=== PATIENT | female | born 1985 ===

== ENCOUNTER 2020-08-04 15:43 | Outpatient (REF) | payer OTHER, MEDICAID, SELFPAY | END 2020-08-04 15:44 | disposition home or self-care (01) | LOC: HO.LAB 15:43 | PROVIDERS: Visit Provider Internal Medicine | DX: Z20.822 Contact with and (suspected) exposure to COVID-19 (principal) | CPT/HCPCS: 36415; C9803; U0003; U0005 ==

== ENCOUNTER 2022-06-10 14:00 | Outpatient (RCR) | payer OTHER, SELFPAY | END 2022-07-29 14:42 | disposition home or self-care (01) | LOC: HO.PTCHIC 14:00 | PROVIDERS: PCP Family Medicine; Visit Provider Urology Female Pelvic Medicine and Reconstructive Surgery | DX: N30.10 Interstitial cystitis (chronic) without hematuria (principal) | CPT/HCPCS: 97110; 97112; 97140; 97162; 97535 ==

== ENCOUNTER 2022-12-12 14:44 | Outpatient (REF) | payer MEDICAID, SELFPAY ==
[2022-12-13 05:06] LABS: Syphilis Screen Nonreactive (Nonreactive)
[2022-12-13 05:38] LABS: ~HepC Num1 0.06 S/CO (0.00-0.79); ~Hepatitis C Antibody Nonreactive (Nonreactive)
[2022-12-13 05:45] LABS: HBsAGNum1 0.32 S/CO (0.00-0.99); HIV AB/AG Nonreactive (Nonreactive); HIV Num 1 0.05 S/CO (0.00-0.99); Hepatitis B Surface Antigen Negative (Negative)
== END 2022-12-12 14:45 | disposition home or self-care (01) ==
LOC: HO.HMGCLDS 14:44
PROVIDERS: Visit Provider Urology Female Pelvic Medicine and Reconstructive Surgery
DX: Z11.3 Encounter for screening for infections with a predominantly sexual mode of transmission (principal); Z11.4 Encounter for screening for human immunodeficiency virus [HIV]
CPT/HCPCS: 36415; 86780; 86803; 87340; 87389

== ENCOUNTER 2022-12-13 14:07 | Outpatient (REF) | payer OTHER, SELFPAY ==
[2022-12-13 16:09] LABS: MANUAL DIFF FLAG NO
[2022-12-13 16:28] LABS: Basophils Percent Auto 0.6 % (0-2); Eosinophils Absolute Auto 0.1 X10*3/uL (0.0-0.4); Eosinophils Percent Auto 2.1 % (0-4); Hematocrit 39.6 % (37.0-47.0); Hemoglobin 12.6 g/dl (12.0-16.0); Imm Gran Abs Auto 0.02 X10*3/uL (0.00-0.03); Imm Gran Pct Auto 0.3 % (0.0-0.4); Lymphocytes Absolute Auto 1.5 X10*3/uL (1.2-4.9); Lymphocytes Percent Auto 24.1 % (20-40); Mean Corpuscular HGB Conc 31.8 g/dl (31.0-35.0); Mean Corpuscular Hemoglobin 29.4 pg (27.0-33.0); Mean Corpuscular Volume 92.5 fL (80.0-98.0); Mean Platelet Volume 10.6 fL (9.4-12.3); Monocytes Absolute Auto 0.4 X10*3/uL (0.1-1.2); Monocytes Percent Auto 6.9 % (2-11); Neutrophils Absolute Auto 4.1 x10*3/uL (2.0-8.3); Platelet Count 299 X10*3/uL (160-400); Red Blood Count 4.28 X10*6/uL (4.20-5.50); Red Cell Distribution Width 13.9 % (11.0-16.0); White Blood Count 6.3 X10*3/uL (4.8-10.8)
[2022-12-13 16:50] LABS: Alanine Aminotransferase 14 U/L (0-31); Alkaline Phosphatase 54 U/L (39-117); Anion Gap 14 (12-20); Aspartate Amino Transferase 18 U/L (5-31); Bilirubin Direct 0.2 mg/dL (0.0-0.5); Bilirubin Total 0.5 mg/dL (0.0-1.0); Blood Urea Nitrogen 11 mg/dL (9-16); Calcium 9.2 mg/dL (8.4-10.2); Carbon Dioxide 23 mmol/L (22-29); Chloride 107 mmol/L (96-108); Cholesterol 189 mg/dL; Estimated Glomerular Filt Rate > 60; Glucose Random 84 mg/dL (60-115); HDL Cholesterol 63 mg/dL; LDL Cholesterol Calculated 108 mg/dl; Sodium 140 mmol/L (135-145); Total Protein 7.5 g/dL (6.5-8.0); Triglycerides 90 mg/dL
[2022-12-13 16:55] LABS: Estimated Average Glucose 88 mg/dL; Hemoglobin A1c % 4.7 %
[2022-12-13 17:08] LABS: Thyroid Stimulating Hormone 1.86 uIU/mL (0.32-4.0)
== END 2022-12-13 14:08 | disposition home or self-care (01) ==
LOC: HO.HMGCLDS 14:07
PROVIDERS: PCP Internal Medicine; Visit Provider Internal Medicine
DX: Z00.00 Encounter for general adult medical examination without abnormal findings (principal); E55.9 Vitamin D deficiency, unspecified
CPT/HCPCS: 36415; 80053; 80061; 82248; 82306; 83036; 84443; 85025

== ENCOUNTER 2023-06-07 14:33 | Outpatient (REF) | payer OTHER, SELFPAY ==
[2023-06-07 15:14] LABS: MANUAL DIFF FLAG NO
[2023-06-07 15:21] LABS: Basophils Percent Auto 0.6 % (0-2); Eosinophils Absolute Auto 0.2 X10*3/uL (0.0-0.4); Eosinophils Percent Auto 3.2 % (0-4); Hematocrit 39.1 % (37.0-47.0); Hemoglobin 12.8 g/dl (12.0-16.0); Imm Gran Abs Auto 0.01 X10*3/uL (0.00-0.03); Imm Gran Pct Auto 0.2 % (0.0-0.4); Lymphocytes Absolute Auto 1.8 X10*3/uL (1.2-4.9); Lymphocytes Percent Auto 28.8 % (20-40); Mean Corpuscular HGB Conc 32.7 g/dl (31.0-35.0); Mean Corpuscular Volume 91.6 fL (80.0-98.0); Mean Platelet Volume 10.7 fL (9.4-12.3); Monocytes Absolute Auto 0.4 X10*3/uL (0.1-1.2); Monocytes Percent Auto 6.6 % (2-11); Neutrophils Absolute Auto 3.8 x10*3/uL (2.0-8.3); Neutrophils Percent Auto 60.6 % (45-73); Platelet Count 302 X10*3/uL (160-400); Red Blood Count 4.27 X10*6/uL (4.20-5.50); Red Cell Distribution Width 13.5 % (11.0-16.0); White Blood Count 6.2 X10*3/uL (4.8-10.8)
[2023-06-07 15:23] LABS: Amphetamine Screen Urine Not Detected (Not Detect); Barbiturates, Urine Not Detected (Not Detect); Benzodiazepines Screen Urine Not Detected (Not Detect); Cannabinoid Screen Urine Not Detected (Not Detect); Cocaine Screen Urine Not Detected (Not Detect); Fentanyl, urine Not Detected (Not Detect); Opiate Screen Urine Not Detected (Not Detect); Phencyclidine Screen Urine Not Detected (Not Detect)
[2023-06-07 15:26] LABS: Estimated Average Glucose 100 mg/dL; Hemoglobin A1c % 5.1 % (<6.0)
[2023-06-07 15:36] LABS: Alanine Aminotransferase 14 U/L (0-31); Albumin Level 3.8 g/dL (3.5-5.0); Alkaline Phosphatase 45 U/L (39-117); Aspartate Amino Transferase 16 U/L (5-31); Bilirubin Direct < 0.2 mg/dL (0.0-0.5); Bilirubin Total 0.2 mg/dL (0.0-1.0); Cholesterol 204 mg/dL (<200); HDL Cholesterol 63 mg/dL (>40); LDL Cholesterol Calculated 123 mg/dL (<100); Total Protein 7.8 g/dL (6.5-8.0); Triglycerides 90 mg/dL (<150)
[2023-06-07 15:50] LABS: Thyroid Stimulating Hormone 1.82 uIU/mL (0.32-4.0); Vitamin D 25-OH Total 27.6 ng/mL (>30)
== END 2023-06-07 14:34 | disposition home or self-care (01) ==
LOC: HO.HMGCLDS 14:33
PROVIDERS: PCP Internal Medicine; Visit Provider Internal Medicine
DX: E04.1 Nontoxic single thyroid nodule (principal); E55.9 Vitamin D deficiency, unspecified; Z79.899 Other long term (current) drug therapy
CPT/HCPCS: 80061; 80076; 80307; 82306; 83036; 84443; 85025

== ENCOUNTER 2023-10-29 08:11 | Outpatient (REF) | payer OTHER, SELFPAY ==
[2023-10-29 11:25] LABS: MANUAL DIFF FLAG NO
[2023-10-29 11:29] LABS: Basophils Absolute Auto 0.1 X10*3/uL (0.0-0.2); Basophils Percent Auto 1.1 % (0-2); Eosinophils Absolute Auto 0.2 X10*3/uL (0.0-0.4); Eosinophils Percent Auto 3.7 % (0-4); Hematocrit 38.4 % (37.0-47.0); Hemoglobin 12.4 g/dl (12.0-16.0); Imm Gran Abs Auto 0.01 X10*3/uL (0.00-0.03); Imm Gran Pct Auto 0.2 % (0.0-0.4); Lymphocytes Absolute Auto 1.7 X10*3/uL (1.2-4.9); Mean Corpuscular HGB Conc 32.3 g/dl (31.0-35.0); Mean Corpuscular Hemoglobin 29.4 pg (27.0-33.0); Mean Platelet Volume 11.2 fL (9.4-12.3); Monocytes Absolute Auto 0.4 X10*3/uL (0.1-1.2); Monocytes Percent Auto 7.7 % (2-11); Neutrophils Percent Auto 55.3 % (45-73); Platelet Count 291 X10*3/uL (160-400); Red Blood Count 4.22 X10*6/uL (4.20-5.50); Red Cell Distribution Width 13.7 % (11.0-16.0); White Blood Count 5.3 X10*3/uL (4.8-10.8)
[2023-10-29 11:37] LABS: Estimated Average Glucose 103 mg/dL; Hemoglobin A1c % 5.2 % (<6.0)
[2023-10-29 11:50] LABS: Alanine Aminotransferase 16 U/L (0-31); Albumin Level 3.8 g/dL (3.5-5.0); Alkaline Phosphatase 42 U/L (39-117); Anion Gap 11 (12-20); Aspartate Amino Transferase 21 U/L (5-31); Bilirubin Total 0.2 mg/dL (0.0-1.0); Blood Urea Nitrogen 10 mg/dL (9-16); Calcium 8.9 mg/dL (8.4-10.2); Carbon Dioxide 21 mmol/L (22-29); Chloride 109 mmol/L (96-108); Cholesterol 208 mg/dL (<200); Estimated Glomerular Filt Rate > 60; Glucose Random 102 mg/dL (60-115); HDL Cholesterol 54 mg/dL (>40); LDL Cholesterol Calculated 128 mg/dL (<100); Potassium 3.9 mmol/L (3.3-5.1); Sodium 137 mmol/L (135-145); Total Protein 7.2 g/dL (6.5-8.0); Triglycerides 131 mg/dL (<150)
[2023-10-29 12:08] LABS: Thyroid Stimulating Hormone 2.09 uIU/mL (0.32-4.0)
== END 2023-10-29 08:12 | disposition home or self-care (01) ==
LOC: HO.HMGCLDS 08:11
PROVIDERS: PCP Internal Medicine; Visit Provider Internal Medicine
DX: Z00.00 Encounter for general adult medical examination without abnormal findings (principal); Z13.1 Encounter for screening for diabetes mellitus; Z13.89 Encounter for screening for other disorder
CPT/HCPCS: 36415; 80053; 80061; 83036; 84443; 85025

== ENCOUNTER 2023-11-19 07:37 | Inpatient (IN) | payer OTHER, SELFPAY ==
[2023-11-19] VITALS (9 sets, daily range): BP systolic 105–120; BP diastolic 50–80; PULSE 58–98; RESP 12–70; TEMP 36.4–36.8; O2SAT 97–99; BMI 36.2; BMI 36.4
--- NOTE | ~2023-11-19 | MR_ITS ---
EXAMINATION: MR LUMBAR SPINE WITHOUT CONTRAST CLINICAL INFORMATION: Sagittal anesthesia. History of L5-S1 herniation. COMPARISON: No relevant prior imaging. TECHNIQUE: MRI of the lumbar spine was obtained using routine sequences without contrast. FINDINGS: Alignment is normal. Vertebral body heights are preserved. No acute bone marrow signal changes. There is loss of intervertebral disc height and T2 signal intensity at L5-S1. The tip of the conus medullaris is located at L1. No mass effect on the conus. Visualized distal cord signal intensity is normal. At L1-L2, L2-L3, L3-L4, and L4-L5 the annular contours are normal. No canal or neuroforaminal compromise at these 4 levels. At L5-S1 there is a broad left central protrusion superimposed upon a bulging disc causing indentation of the thecal sac and subtle abutment on the left traversing S1 nerve root. No canal stenosis and no foraminal nerve root compression. Limited visualization of the retroperitoneal anatomy reveals no abnormal finding. Psoas and paraspinal muscle groups are symmetric. MR/MR lumbar spine wo con IMPRESSION: There is a broad left central protrusion superimposed upon a bulging disc at L5-S1 causing subtle abutment on the left traversing S1 nerve root. Otherwise unremarkable examination. No canal stenosis and no foraminal nerve root compression.
--- NOTE | 2023-11-19 08:28 | ED.GENADULT ---
HPI - General Adult General Chief complaint: Back Pain/Injury Stated complaint: BACK PAIN S/P STRETCHING T-1 PER EMS Time Seen by Provider: 11/19/23 08:27 Source: patient, EMS and RN notes reviewed Mode of arrival: EMS Limitations: no limitations History of Present Illness ED Provider: albaro HPI narrative: Patient is a 38-year-old female with history of disc herniation of L5/S1 in 2018 which resolved with PT, did not require surgery, presenting to the ED with complaint of lower back pain for the past 2 weeks with acute worsening yesterday. States that her initial herniation was a result of an injury at work. Feels recent pain was due to yoga/stretching. States pain is primarily midline but occasionally radiates down left leg and reports numbness down right leg to calf. Also reports saddle anesthesia and has not urinated since last night. Denies bowel or bladder incontinence. Took naproxen without relief. Denies fevers, history of IVDU, cancer. MD complaint: back pain Onset (ago): day(s) Location: back Radiation: distal Severity scale (1-10): >10 Quality: burning Pain Consistency: constant Relieving factors: none Exacerbating factors: movement Treatments prior to arrival: NSAID Related Data Allergies Allergy/AdvReac Type Severity Reaction Status Date / Time acetaminophen [From Vicodin] Allergy Severe dyspnea Verified 11/19/23 08:06 codeine Allergy Severe Chest Pain Verified 11/19/23 08:06 hydrocodone [From Vicodin] Allergy Severe dyspnea Verified 11/19/23 08:06 Review of Systems Review of Systems: As per HPI. Yes all other systems are reviewed and are negative Constitutional: Constitutional: Reports as per HPI [facility] Social History Social History Advance Directives: No Advance Directives Information Provided: Yes Do you have a plan to hurt others: No Plan Physical Exam ED Vital Signs: Vital Signs - 24 hr 11/19/23 08:02 11/19/23 08:51 11/19/23 11:03 Temperature 98.2 F Pulse Rate 70 Respiratory Rate 18 70 H 12 Blood Pressure 116/61 Pulse Oximetry 98 Oxygen Delivery Method Room Air 11/19/23 11:33 11/19/23 13:46 11/19/23 13:47 Temperature 98.2 F Pulse Rate 69 68 70 Respiratory Rate 12 19 18 Blood Pressure 106/50 L 110/61 120/58 L Pulse Oximetry 97 98 Oxygen Delivery Method 11/19/23 15:25 Temperature 98.2 F Pulse Rate 98 Respiratory Rate 16 Blood Pressure 117/61 Pulse Oximetry 98 Oxygen Delivery Method Room Air BMI result Body Mass Index 36.2 Vital signs have been reviewed and appear to be correct. Blood pressure normal. Heart rate normal. Respiratory rate normal. Temperature normal. Oxygen saturation normal. Const General: cooperative and healthy appearing; No comfortable (tearful during assessment) Orientation/consciousness: oriented to person, oriented to place, oriented to time and patient oriented x3 Limitations: no limitations [facility] Head: Yes normocephalic and Yes atraumatic Ears: external ears normal General nose exam: Normal external nose present Face and sinus: Yes face symmetric Mouth: oropharynx normal and moist mucous membranes Throat: Yes uvula midline Eyes Pupils: Equal, round and reactive pupils present Neck Neck: Yes normal visual inspection, Yes no meningeal signs and Yes supple Resp Effort & Inspection: normal respiratory effort and able to speak in complete sentences Auscultation: clear to auscultation bilaterally Cardio Rate: regular rate Rhythm: regular rhythm Heart sounds: S1 normal heart sound present and S2 normal heart sound present GI Palpation (GI): Soft to palpation and nontender Auscultation: normoactive bowel sounds General: Yes no CVA tenderness Back/Spine/Pelvis Back: no CVA tenderness Skin General skin exam: elasticity normal and turgor normal Neuro Other: exam limited due to pain, decreased sensation to right leg on anterior and lateral aspects General: oriented to person, oriented to place, oriented to time, patient oriented x3, tone normal, moves all extremities, no meningeal signs, no focal motor deficits and CN's II-XI intact bilaterally Cranial nerves: Yes Equal, round and reactive pupils present Cognition (Neuro): normal cognition Extrem General: Yes full ROM, Yes no pedal edema and Yes no calf tenderness Psych Mental Status: mental status grossly normal Affect: normal affect Thought process: Normal thought process present Medications Administered Discontinued Medications Generic Name Dose Route Start Last Admin Trade Name Freq PRN Reason Stop Dose Admin Diazepam 5 mg 11/19/23 10:50 11/19/23 11:05 Diazepam 10 Mg/2 Ml Cartridge IVPUSH 11/19/23 10:51 5 mg STAT STA Administration Hydromorphone HCl 1 mg 11/19/23 10:38 11/19/23 11:03 Hydromorphone Hcl 1 Mg/Ml Syringe IVPUSH 11/19/23 10:39 1 mg ONCE ONE Administration Protocol Hydromorphone HCl 0.5 mg 11/19/23 13:37 11/19/23 13:43 Hydromorphone Hcl 0.5 Mg/0.5 Ml Syringe IVPUSH 11/19/23 13:38 0.5 mg ONCE ONE Administration Protocol Methylprednisolone Sodium Succinate 60 mg 11/19/23 08:39 11/19/23 08:52 Methylprednisolone Sod Succ 125 Mg/2 Ml Vial IVPUSH 11/19/23 08:40 60 mg ONCE ONE Administration Morphine Sulfate 4 mg 11/19/23 08:39 11/19/23 08:51 Morphine Sulfate 4 Mg/Ml Cartridge IVPUSH 11/19/23 08:40 4 mg ONCE ONE Administration Protocol Morphine Sulfate 4 mg 11/19/23 09:35 11/19/23 09:45 Morphine Sulfate 4 Mg/Ml Cartridge IVPUSH 11/19/23 09:36 4 mg ONCE ONE Administration Protocol Medical Decision Making Medical Decision Making [facility] Narrative: Patient is a 38-year-old female with history of disc herniation of L5/S1 in 2018 which resolved with PT, did not require surgery, presenting to the ED with complaint of lower back pain for the past 2 weeks with acute worsening yesterday. States that her initial herniation was a result of an injury at work. On exam patient is awake, A+Ox3, VS WNL, afebrile, normal neurological exam without focal deficits, physical exam findings as above. Given reported symptoms and physical exam findings, initial differential includes cauda equina, cord compression, disc herniation, lumbar strain, lumbar radiculopathy. Less likely SEA. Patient signed out to NAZARIO Castillo pending results of MRI. Differential Diagnosis Differential Diagnoses: The differential diagnosis associated with the presentation includes As per [facility] Lab Data [facility] Lab Attestation statement: I reviewed the patient's lab results. As per [facility] Labs: Lab Results 11/19/23 Range/Units 10:34 Urine Color Yellow Urine Appearance Clear Urine pH 6.5 (5.0-9.0) Ur Specific [place] 1.015 (1.005-1.025) Urine Protein Negative (Neg-Trace) mg/dL Urine Glucose (UA) Negative (Negative) mg/dL Urine Ketones Negative (Negative) mg/dL Urine Blood Negative (Negative) Urine Nitrite Negative (Negative) Ur Leukocyte Esterase Trace H (Negative) Urine RBC 0-2 (0-2) /HPF Urine WBC 0-5 (0-5) /HPF Ur Squamous Epith Cells 0-2 (0-2) /HPF Urine Bacteria None Seen (None Seen) Hyaline Casts 0-2 (0-2) /LPF External Record Review External record reviewed: Inpatient record, Office record and Outpatient record Prescription Management I considered prescription management with: Pain Medication Critical Care Time Critical Care Time Critical Care Time: Yes Total Critical Care Time: 49 Attestation: I have personally provided critical care time exclusive of time spent on separately billable procedures. Time includes review of lab data, radiology results, discussion with consultants, and monitoring for potential decompensation. Intervention performed as documented. Discharge Plan Discharge Clinical Impression: Back pain Patient Disposition: Still a Patient Print Language: Slovak
[2023-11-19] MEDS: Morphine Sulfate 4 MG/ML CARTRIDGE IVPUSH ×2 (08:51→09:45)
[2023-11-19] MEDS: methylPREDNISolone Sod Succ 125 MG/2 ML VIAL 60 MG IVPUSH (08:52)
[2023-11-19 10:43] LABS: Appearance Urine Clear; Color Urine Yellow; Glucose Urine UA Negative (Negative); Leukocyte Esterase Urine Trace (Negative); Nitrite Urine Negative (Negative); PH 6.5 (5.0-9.0); Specific Gravity - Urine 1.015 (1.005-1.025); UMIC TRIGGER UACC YES; Urine Blood Negative (Negative); Urine Ketones Negative (Negative); Urine Protein Negative (Neg-Trace)
--- NOTE | 2023-11-19 10:45 | PC.NURSE ---
patient was able to void on the bedpan 500 clear yellow urine.
[2023-11-19 10:48] LABS: Bacteria Urine None Seen (None Seen); Hyaline Casts Urine 0-2 /LPF (0-2); RBC Urine 0-2 /HPF (0-2); Squamous Epithelial Cell Urine 0-2 /HPF (0-2); WBC Urine 0-5 /HPF (0-5)
[2023-11-19] MEDS: HYDROmorphone HCl 1 MG/ML SYRINGE IVPUSH (11:03)
[2023-11-19] MEDS: diazePAM 10 MG/2 ML CARTRIDGE 5 MG IVPUSH (11:05)
--- NOTE | 2023-11-19 11:42 | PC.NURSE ---
Oxygen started for low oxygen saturation of 92-93 percent; RR is between 9-13 per minute with no respiratory distress noted.
[2023-11-19] MEDS: HYDROmorphone HCl 0.5 MG/0.5 ML SYRINGE IVPUSH ×2 (13:43→22:05)
--- NOTE | 2023-11-19 17:13 | PM.IMHP ---
History of Present Illness Date of Service: 11/19/23 Chief Complaint: Lower back pain 38-year-old female patient with past medical history significant for L5/S1 disc herniation in 2018 which resolved with physical therapy did not require surgery, also with history of ADHD, psoriasis, presented to [facility] due to worsening lower back pain according to patient 2 weeks ago she developed back pain due to stretching exercises she is saw her chiropractor Yordan underwent manipulation and was resting with good relief in symptoms she was instructed by chiropractic not resume exercises for 2 weeks yesterday morning she started stretching and developed back discomfort Marita localized to both buttocks with radiation to both legs left greater than right she was unable to stand or sit moved around, all day she managed pain with using Naprosyn last night developed severe pain and this morning it worsened she was unable to walk due to pain, therefore came to emergency room she describes her pain as sharp , shooting feeling in the buttock with radiation to both legs up to feet and toes, associated with numbness in the foot, she denies bowel bladder incontinence, likely due to pain patient was unable to urinate, she denies associated fever chills, no history of IV drug use, MRI Lumbar spine showed broad left central protrusion superimposed upon a bulging disc at L5-S1 causing subtle abutment on the left traversing S1 nerve root otherwise unremarkable examination, no canal stenosis, no foraminal nerve root compression was noted. Patient treated in the emergency room with multiple rounds of morphine, IV Dilaudid, IV Solu Medrol but due to persistent intractable S1 radiculopathy pain she is being admitted to [facility]. Review of Systems Review of Systems: General no headache, no dizziness no fever chills. CVS no chest pain, no palpitation. Respiratory no cough, no sob Gastrointestinal no nausea, no vomiting, no abdominal pain Skin no rash no urgency, no frequency All other system reviewed and are negative PMFSH Cognitive capacity: History of psoriasis ADHD Pertinent family history: Patient is adopted not aware of biological parents medical history. Social History Household Members: None Housing: Apartment Do you presently have visiting nurse or other home services: No Alcohol intake: current Alcohol intake frequency: a few times a week Patient Tobacco Use Status: Never used Tobacco Smoked in Last 30 Days: No Use of substances other than those prescribed or required for medical reasons: No Substance Use Type: Marijuana Substance Use Frequency: Occasionally Last Used Substance: Days (ago) Currently Displaying Signs/Symptoms of Drug Intoxication Withdrawal: No Any prior treatment program specific to substance use: No Have you been hit, kicked, punched, or otherwise hurt by someone within the past year? If so, by whom?: No Do you feel safe in your current relationship?: No Current Relationship Is there a partner from a previous relationship who is making you feel unsafe now?: No Are you made to feel afraid or neglected: No Advance Directives: No Advance Directives Information Provided: Yes Do you have a plan to hurt others: No Plan Recently lost weight without trying: Unsure How much weight loss: Unsure Eating poorly because of decreased appetite: No Nutrition screen score: 4 Nutrition Risks: No Nutritional Risk Patient : No : No Poor oral hygiene: No Meds Allergies Allergy/AdvReac Type Severity Reaction Status Date / Time acetaminophen [From Vicodin] Allergy Severe dyspnea Verified 11/19/23 08:06 codeine Allergy Severe Chest Pain Verified 11/19/23 08:06 hydrocodone [From Vicodin] Allergy Severe dyspnea Verified 11/19/23 08:06 Active Medications: Current Medications Calcium Carbonate (Calcium Carbonate 750 Mg Tab.Chew) 750 mg PO Q4H PRN PRN Reason: Heartburn Dexamethasone Sodium Phosphate (Dexamethasone Sod Phosphate 4 Mg/Ml Vial) 4 mg IVPUSH Q8H [facility] Famotidine (Famotidine 20 Mg Tablet) 20 mg PO BID [facility] Gabapentin (Gabapentin 100 Mg Capsule) 100 mg PO TID [facility]AR[facility] Hydromorphone HCl (Hydromorphone Hcl 0.5 Mg/0.5 Ml Syringe) 0.5 mg IVPUSH Q3H PRN; Protocol PRN Reason: Pain, Severe (Pain Scale 7-10) Ketorolac Tromethamine (Ketorolac Tromethamine 30 Mg/Ml Vial) 30 mg IVPUSH Q6H [facility] Magnesium Hydroxide (Milk Of Magnesia 30 Ml Oral.Susp) 30 ml PO DAILY PRN PRN Reason: Constipation Melatonin (Melatonin 3 Mg Tablet) 6 mg PO BEDTIME PRN PRN Reason: Insomnia Methylphenidate HCl (Methylphenidate Hcl 10 Mg Tablet) 10 mg PO TID ROSARIO Ondansetron HCl (Ondansetron Hcl 4 Mg/2 Ml Vial) 4 mg IVPUSH Q8H PRN PRN Reason: Nausea and Vomiting Sodium Chloride (0.9 % Sodium Chloride Flush 3 Ml Syringe) [facility] ?Medication ?Instructions ?Recorded ?Confirmed ?Last Taken ?Type apremilast 30 mg tablet (Otezla) 30 mg PO BID 11/19/23 11/19/23 11/18/23 History fluocinonide 0.05 % topical 1 appl topical BID 11/19/23 11/19/23 11/18/23 History solution methylphenidate HCl 10 mg tablet 10 mg PO TID 11/19/23 11/19/23 11/18/23 History naproxen 500 mg tablet 500 mg PO BID PRN pain 11/19/23 11/19/23 Unknown History norgestimate 0.18 mg/0.215 mg/0.25 1 tab PO DAILY 11/19/23 11/19/23 11/18/23 History mg-ethinyl estradiol 25 mcg tablet (Kjq-Av-Cphbol) Physical Exam Vital Signs and Narrative: Vital Signs: Last Vital Signs Temp 98.2 F 11/19/23 15:25 Pulse 98 11/19/23 15:25 Resp 16 11/19/23 15:25 BP 117/61 11/19/23 15:25 Pulse Ox 98 11/19/23 15:25 O2 Del Method Room Air 11/19/23 15:25 BMI result Body Mass Index 36.2 Const: Other: General awake alert x3 in acute distress due to pain Anicteric sclera Neck supple, no JVD. CVS regular rate rhythm, Respiratory lungs clear to auscultation, no respiratory distress, no wheeze, no rhonchi. Gastrointestinal abdomen soft, non tender, bowel sounds audible, no guarding , no rigidity. Extremities no edema. Neuro speech clear, decreased sensation left leg, left foot, patient able to bend knees/flex foot, no loss of strength limited examination due to pain Psych appropriate affect Results Labs Labs: Laboratory Results - last 24 hr 11/19/23 10:34 Urine Color Yellow Urine Appearance Clear Urine pH 6.5 Ur Specific [place] 1.015 Urine Protein Negative Urine Glucose (UA) Negative Urine Ketones Negative Urine Blood Negative Urine Nitrite Negative Ur Leukocyte Esterase Trace H Urine RBC 0-2 Urine WBC 0-5 Ur Squamous Epith Cells 0-2 Urine Bacteria None Seen Hyaline Casts 0-2 Imaging Radiologist's Impressions: Impressions Lumbar Spine MRI 11/19/23 14:32 IMPRESSION: There is a broad left central protrusion superimposed upon a bulging disc at L5-S1 causing subtle abutment on the left traversing S1 nerve root. Otherwise unremarkable examination. No canal stenosis and no foraminal nerve root compression. Assessment and Plan (1) Bulging lumbar disc: Status: Acute (2) Intractable back pain: Status: Acute (3) Lumbosacral radiculopathy at S1: Status: Acute Plan 38-year-old female patient being admitted to [facility] due to intractable lower back pain with radiation to both legs left greater than right likely due to left central protrusion superimposed upon a bulge disc at L5-S1 causing subtle abutment on the left traversing S1 nerve root. Acute intractable lower back pain due to disc bulge at L5-S1/left central protrusion with S1 nerve impingement; Admit to medical floor treat with Neurontin 100 mg t.i.d./Toradol 30 mg q.6 hours/IV steroids/IV Dilaudid Pepcid for GI prophylaxis Bedrest History of ADHD resume home medication History of psoriasis no acute flare Class 2 obesity recommend low-calorie diet and weight loss DVT prophylaxis low risk Full code. In my clinical judgment patient will require 2 night inpatient hospitalization for intractable lower back pain due to S1 radiculopathy requiring intravenous analgesics, patient unable to ambulate Quality Stroke Does the patient have a stroke diagnosis?: No VTE Prior VTE?: No VTE Risk Level:: Medical - low VTE Device Contraindication: Treatment Not Indicated VTE Drug Contraindication: Treatment Not Indicated
[2023-11-19] MEDS: Ketorolac Tromethamine 30 MG/ML VIAL IVPUSH (17:27)
[2023-11-19] MEDS: dexAMETHasone sod phosphate 4 MG/ML VIAL IVPUSH (17:27)
--- NOTE | 2023-11-19 17:39 | PHA.MEDREC ---
Pharmacy Consult ? Medication Reconciliation Pharmacy has completed the medication reconciliation. Spoke to patient to confirm med list.
[2023-11-19] MEDS: Famotidine 20 MG TABLET PO (20:46)
[2023-11-19] MEDS: Gabapentin 100 MG CAPSULE PO (20:46)
[2023-11-19] MEDS: 0.9 % Sodium Chloride Flush 3 ML SYRINGE IVFLUSH (20:46)
[2023-11-19] MEDS: Melatonin 3 MG TABLET 6 MG PO (22:05)
[2023-11-20] MEDS: Ketorolac Tromethamine 30 MG/ML VIAL IVPUSH ×4 (01:02→17:13)
[2023-11-20] MEDS: dexAMETHasone sod phosphate 4 MG/ML VIAL IVPUSH ×3 (01:02→17:14)
[2023-11-20] MEDS: HYDROmorphone HCl 0.5 MG/0.5 ML SYRINGE IVPUSH ×4 (02:37→20:49)
--- NOTE | 2023-11-20 03:38 | PC.NURSE ---
Pt AOx3, able to make her needs known. Pt voided on bedpan but d/t pain it caused her, purewick was placed after discussion and education w/pt. She continues to c/o 01/19 lower back pain. Repositioning attempts are trial and error d/t her back pain. She is unable to sit up or walk, she has an order for bedrest at this time. Pt educated and voiced understanding in regards to safety, bed alarm was declined. Call quiñones within reach.
[2023-11-20 07:17] VITALS: BP 106/57; PULSE 74; RESP 16; TEMP 36.4; O2SAT 98
[2023-11-20] MEDS: Methylphenidate HCl 10 MG TABLET PO ×3 (08:24→17:14)
[2023-11-20] MEDS: 0.9 % Sodium Chloride Flush 3 ML SYRINGE IVFLUSH ×2 (08:24→15:48)
[2023-11-20] MEDS: Famotidine 20 MG TABLET PO ×2 (08:24→20:33)
[2023-11-20] MEDS: Gabapentin 100 MG CAPSULE PO ×3 (08:24→20:33)
--- NOTE | 2023-11-20 11:53 | HO.PM.IMPN ---
Subjective Subjective Date of Service: 11/20/23 Interval History: Being followed for S1 radiculopathy with severe intractable pain Feel pain is slightly better tried sitting up but noted worsening pain, no bowel bladder incontinence, no weakness, left leg numbness is improving in lower leg and foot.. Review of Systems All other system reviewed and are negative. Physical Exam Vital Signs: Vital Signs: Last Vital Signs Temp 97.5 F 11/20/23 07:17 Pulse 74 11/20/23 07:17 Resp 16 11/20/23 07:17 BP 106/57 L 11/20/23 07:17 Pulse Ox 98 11/20/23 07:17 O2 Del Method Room Air 11/20/23 07:17 BMI result Body Mass Index 36.4 Const: Other: General awake alert x3 in acute distress due to pain Anicteric sclera Neck supple, no JVD. CVS regular rate rhythm, Respiratory lungs clear to auscultation, no respiratory distress, no wheeze, no rhonchi. Gastrointestinal abdomen soft, non tender, bowel sounds audible, no guarding , no rigidity. Extremities no edema. Neuro speech clear, LS numbness left leg, left foot, no loss of strength limited examination due to pain Psych appropriate affect Objective Data Active Medications Calcium Carbonate (Calcium Carbonate 750 Mg Tab.Chew) 750 mg PO Q4H PRN PRN Reason: Heartburn Dexamethasone Sodium Phosphate (Dexamethasone Sod Phosphate 4 Mg/Ml Vial) 4 mg IVPUSH Q8H [facility] Last Admin: 11/20/23 08:24 Dose: 4 mg Documented By: PINA Famotidine (Famotidine 20 Mg Tablet) 20 mg PO BID [facility] Last Admin: 11/20/23 08:24 Dose: 20 mg Documented By: PINA Gabapentin (Gabapentin 100 Mg Capsule) 100 mg PO TID [facility] Last Admin: 11/20/23 08:24 Dose: 100 mg Documented By: PINA Hydromorphone HCl (Hydromorphone Hcl 0.5 Mg/0.5 Ml Syringe) 0.5 mg IVPUSH Q3H PRN; Protocol PRN Reason: Pain, Severe (Pain Scale 7-10) Last Admin: 11/20/23 10:26 Dose: 0.5 mg Documented By: PINA Ketorolac Tromethamine (Ketorolac Tromethamine 30 Mg/Ml Vial) 30 mg IVPUSH Q6H [facility] Stop: 11/24/23 17:59 Last Admin: 11/20/23 05:14 Dose: 30 mg Documented By: YURI Magnesium Hydroxide (Milk Of Magnesia 30 Ml Oral.Susp) 30 ml PO DAILY PRN PRN Reason: Constipation Melatonin (Melatonin 3 Mg Tablet) 6 mg PO BEDTIME PRN PRN Reason: Insomnia Last Admin: 11/19/23 22:05 Dose: 6 mg Documented By: YURI Methylphenidate HCl (Methylphenidate Hcl 10 Mg Tablet) 10 mg PO TIDWM [facility] Last Admin: 11/20/23 08:24 Dose: 10 mg Documented By: PINA Non-Formulary Medication (Apremilast [Otezla]) 30 mg PO BID [facility] Ondansetron HCl (Ondansetron Hcl 4 Mg/2 Ml Vial) 4 mg IVPUSH Q8H PRN PRN Reason: Nausea and Vomiting Sodium Chloride (0.9 % Sodium Chloride Flush 3 Ml Syringe) 3 ml IVFLUSH QSHIFT [facility] Last Admin: 11/20/23 08:24 Dose: 3 ml Documented By: PINA Assessment and Plan (1) Lumbosacral radiculopathy at S1: Status: Acute (2) Intractable back pain: Status: Acute Plan 38-year-old female patient being admitted to [facility] due to intractable lower back pain with radiation to both legs left greater than right likely due to left central protrusion superimposed upon a bulge disc at L5-S1 causing subtle abutment on the left traversing S1 nerve root. Acute intractable lower back pain due to disc bulge at L5-S1/left central protrusion with S1 nerve impingement; Pain improving with current treatment Continue Neurontin 100 mg t.i.d./Toradol 30 mg q.6 hours/IV steroids/wean IV Dilaudid Pepcid for GI prophylaxis Recommend to continue Bedrest/recommend to lie on back hold PT History of ADHD continue Ritalin History of psoriasis no acute flare Class 2 obesity recommend low-calorie diet and weight loss DVT prophylaxis low risk Full code. In my clinical judgment patient will require continued inpatient hospitalization for intractable lower back pain due to S1 radiculopathy requiring intravenous analgesics, patient unable to ambulate. Quality Stroke Does the patient have a stroke diagnosis?: No VTE Prior VTE?: No VTE Risk Level:: Medical - low VTE Device Contraindication: Treatment Not Indicated VTE Drug Contraindication: Treatment Not Indicated
--- NOTE | 2023-11-20 13:08 | MHC.CM.PN ---
PT REPORTS SHE LIVES ALONE AND IS INDEPENDENT AT BASELINE PT HAS NO SERVICES, WORKS AND DRIVES PT DENIES USE OF DME PT DECLINES TO COMPLETE A HCP PCP: MINA JUAN DCP: HOME NO SERVICES VIA PRIVATE TRANSPORT
[2023-11-20 15:26] VITALS: BP 133/63; PULSE 71; RESP 18; TEMP 36.5; O2SAT 98
[2023-11-20 20:40] VITALS: BP 128/66; PULSE 71; RESP 18; TEMP 36.7; O2SAT 94
[2023-11-21] VITALS: BP 116/57; PULSE 57; RESP 16; TEMP 36.4; O2SAT 96
[2023-11-21] MEDS: Melatonin 3 MG TABLET 6 MG PO (00:16)
[2023-11-21] MEDS: Milk of Magnesia 30 ML ORAL.SUSP PO (00:17)
[2023-11-21] MEDS: 0.9 % Sodium Chloride Flush 3 ML SYRINGE IVFLUSH ×4 (00:19→21:36)
[2023-11-21] MEDS: Ketorolac Tromethamine 30 MG/ML VIAL IVPUSH ×4 (00:20→17:45)
[2023-11-21] MEDS: dexAMETHasone sod phosphate 4 MG/ML VIAL IVPUSH ×2 (00:23→08:57)
[2023-11-21 07:35] VITALS: BP 116/62; PULSE 56; RESP 16; TEMP 36.1; O2SAT 97
[2023-11-21] MEDS: Famotidine 20 MG TABLET PO ×2 (08:57→20:00)
[2023-11-21] MEDS: Methylphenidate HCl 10 MG TABLET PO ×3 (08:57→17:45)
[2023-11-21] MEDS: HYDROmorphone HCl 0.5 MG/0.5 ML SYRINGE IVPUSH ×3 (08:57→21:34)
[2023-11-21] MEDS: Gabapentin 100 MG CAPSULE PO ×3 (08:57→20:00)
[2023-11-21 11:35] VITALS: BP 116/62; PULSE 56; O2SAT 97
--- NOTE | 2023-11-21 12:15 | MHC.CM.PN ---
EMR REVIEWED AND PER MD ROUNDS , PT MAY DC AFTER P.T. EVAL. P.T. REC HOME WITH FAMILY SUPPORT. CM WILL CONTINUE TO FOLLOW FOR ANY CHANGES TO DC PLAN/NEEDS.
--- NOTE | 2023-11-21 12:46 | P.PNIM_ITS ---
Subjective Subjective Date of Service: 11/21/23 Interval History: Being followed for S1 radiculopathy Feeling better, lower back pain has improved, complaining of back pain, buttocks and hamstring, lower extremity numbness resolved, able to sit, ambulated 100 ft without walker with supervision and guarded gait pattern with physical therapy, tolerating diet no nausea ,no abdominal pain or diarrhea Review of Systems All other system are reviewed and are negative. Physical Exam Vital Signs: Vital Signs: Last Vital Signs Temp 96.9 F 11/21/23 07:35 Pulse 56 11/21/23 11:35 Resp 16 11/21/23 07:35 BP 116/62 11/21/23 11:35 Pulse Ox 97 11/21/23 11:35 O2 Del Method Room Air 11/21/23 07:35 BMI result Body Mass Index 36.4 Const: Other: General awake alert x3 in acute distress due to pain Anicteric sclera Neck supple, no JVD. CVS regular rate rhythm, Respiratory lungs clear to auscultation, no respiratory distress, no wheeze, no rhonchi. Gastrointestinal abdomen soft, non tender, bowel sounds audible, no guarding , no rigidity. Extremities no edema. Neuro speech clear, both lower extremity, no numbness, no loss of strength Psych appropriate affect Objective Data Active Medications Calcium Carbonate (Calcium Carbonate 750 Mg Tab.Chew) 750 mg PO Q4H PRN PRN Reason: Heartburn Dexamethasone Sodium Phosphate (Dexamethasone Sod Phosphate 4 Mg/Ml Vial) 4 mg IVPUSH Q8H [facility] Last Admin: 11/21/23 08:57 Dose: 4 mg Documented By: PINA Famotidine (Famotidine 20 Mg Tablet) 20 mg PO BID [facility] Last Admin: 11/21/23 08:57 Dose: 20 mg Documented By: PINA Gabapentin (Gabapentin 100 Mg Capsule) 100 mg PO TID [facility] Last Admin: 11/21/23 08:57 Dose: 100 mg Documented By: PINA Hydromorphone HCl (Hydromorphone Hcl 0.5 Mg/0.5 Ml Syringe) 0.5 mg IVPUSH Q3H PRN; Protocol PRN Reason: Pain, Severe (Pain Scale 7-10) Last Admin: 11/21/23 08:57 Dose: 0.5 mg Documented By: PINA Ketorolac Tromethamine (Ketorolac Tromethamine 30 Mg/Ml Vial) 30 mg IVPUSH Q6H [facility] Stop: 11/24/23 17:59 Last Admin: 11/21/23 12:13 Dose: 30 mg Documented By: PINA Magnesium Hydroxide (Milk Of Magnesia 30 Ml Oral.Susp) 30 ml PO DAILY PRN PRN Reason: Constipation Last Admin: 11/21/23 00:17 Dose: 30 ml Documented By: CINDA Melatonin (Melatonin 3 Mg Tablet) 6 mg PO BEDTIME PRN PRN Reason: Insomnia Last Admin: 11/21/23 00:16 Dose: 6 mg Documented By: CINDA Methylphenidate HCl (Methylphenidate Hcl 10 Mg Tablet) 10 mg PO TIDWM [facility] Last Admin: 11/21/23 12:15 Dose: 10 mg Documented By: PINA Non-Formulary Medication (Apremilast [Otezla]) 30 mg PO BID [facility] Ondansetron HCl (Ondansetron Hcl 4 Mg/2 Ml Vial) 4 mg IVPUSH Q8H PRN PRN Reason: Nausea and Vomiting Sodium Chloride (0.9 % Sodium Chloride Flush 3 Ml Syringe) 3 ml IVFLUSH QSHIFT [facility] Last Admin: 11/21/23 08:59 Dose: 3 ml Documented By: PINA Assessment and Plan (1) Lumbosacral radiculopathy at S1: Status: Acute (2) Intractable back pain: Status: Acute Plan 38-year-old female patient being admitted to [facility] due to intractable lower back pain with radiation to both legs left greater than right likely due to left central protrusion superimposed upon a bulge disc at L5-S1 causing subtle abutment on the left traversing S1 nerve root. Acute intractable lower back pain due to disc bulge at L5-S1/left central protrusion with S1 nerve impingement; Pain improving with current treatment Continue Neurontin 100 mg t.i.d./Toradol 30 mg q.6 hours/change IV dexamethasone q8h to by mouth twice daily,/wean IV Dilaudid , allergic to codeine/hydrocodone Will discharge on Neurontin/Naprosyn/msir Seen by Physical therapy they recommend home with family Pepcid for GI prophylaxis Recommend to ambulate short distances few times a day/apply heat Possible home with family at a.m. History of ADHD continue Ritalin History of psoriasis no acute flare Class 2 obesity recommend low-calorie diet and weight loss DVT prophylaxis low risk Full code. In my clinical judgment patient will require continued inpatient hospitalization for intractable lower back pain due to S1 radiculopathy requiring intravenous analgesics, patient unable to ambulate. Quality Stroke Does the patient have a stroke diagnosis?: No VTE Prior VTE?: No VTE Risk Level:: Medical - low VTE Device Contraindication: Treatment Not Indicated VTE Drug Contraindication: Treatment Not Indicated
[2023-11-21 15:45] VITALS: BP 137/66; PULSE 56; RESP 16; TEMP 36.4; O2SAT 98
[2023-11-21] MEDS: dexAMETHasone 4 MG TABLET PO (17:45)
[2023-11-21 19:37] VITALS: BP 121/58; PULSE 83; RESP 16; TEMP 36.7; O2SAT 94
[2023-11-21 23:47] VITALS: BP 118/58; PULSE 52; RESP 16; TEMP 36.2; O2SAT 93
[2023-11-22] MEDS: Ketorolac Tromethamine 30 MG/ML VIAL IVPUSH ×5 (00:01→23:10)
[2023-11-22] MEDS: Milk of Magnesia 30 ML ORAL.SUSP PO (00:01)
[2023-11-22] MEDS: Melatonin 3 MG TABLET 6 MG PO ×2 (00:29→23:14)
[2023-11-22 07:43] VITALS: BP 124/62; PULSE 50; RESP 16; TEMP 36.2; O2SAT 99
[2023-11-22] MEDS: Gabapentin 100 MG CAPSULE PO ×3 (09:24→19:52)
[2023-11-22] MEDS: dexAMETHasone 4 MG TABLET PO ×2 (09:24→16:30)
[2023-11-22] MEDS: Famotidine 20 MG TABLET PO ×2 (09:24→19:52)
[2023-11-22] MEDS: Methylphenidate HCl 10 MG TABLET PO ×3 (09:24→16:30)
[2023-11-22] MEDS: 0.9 % Sodium Chloride Flush 3 ML SYRINGE IVFLUSH ×3 (09:26→19:54)
--- NOTE | 2023-11-22 09:37 | P.DS_ITS ---
DS: Providers Provider Date of Service: 11/22/23 Date of admission: 11/19/23 17:00 Primary care physician: Farrah Herring MD Consults: DS: Diagnosis Discharge Diagnosis (1) Lumbosacral radiculopathy at S1: Status: Acute (2) Intractable back pain: Status: Acute DS: Summary Hospital Course Hospital Course: admission hpi Chief Complaint: Lower back pain 38-year-old female patient with past medical history significant for L5/S1 disc herniation in 2018 which resolved with physical therapy did not require surgery, also with history of ADHD, psoriasis, presented to [facility] due to worsening lower back pain according to patient 2 weeks ago she developed back pain due to stretching exercises she is saw her chiropractor Yordan underwent manipulation and was resting with good relief in symptoms she was instructed by chiropractic not resume exercises for 2 weeks yesterday morning she started stretching and developed back discomfort Marita localized to both buttocks with radiation to both legs left greater than right she was unable to stand or sit moved around, all day she managed pain with using Naprosyn last night developed severe pain and this morning it worsened she was unable to walk due to pain, therefore came to emergency room she describes her pain as sharp , shooting feeling in the buttock with radiation to both legs up to feet and toes, associ ated with numbness in the foot, she denies bowel bladder incontinence, likely due to pain patient was unable to urinate, she denies associated fever chills, no history of IV drug use, MRI Lumbar spine showed broad left central protrusion superimposed upon a bulging disc at L5-S1 causing subtle abutment on the left traversing S1 nerve root otherwise unremarkable examination, no canal stenosis, no foraminal nerve root compression was noted. Patient treated in the emergency room with multiple rounds of morphine, IV Dilaudid, IV Solu Medrol but due to persistent intractable S1 radiculopathy pain she is being admitted to [facility]. Hospital course: The patient presented with acute intractable lower back pain due to a disc bulge at L5-S1/left central protrusion with S1 nerve impingement. There is no neurological deficit such as urinary or bowel incontinence, and no weakness in the legs. Her management included PRN IV Dilaudid, Neurontin, and Dexamethasone. Overall, her pain has improved, and she is ambulating with a walker. Physical therapy has assessed her and recommended discharge to home with family support. Although she lives alone, she will stay with her parents until she recovers. She has experienced similar flares over the years. We discussed an outpatient consultation with a neurosurgeon, which has been suggested to her in the past. She will be discharged with a prednisone taper, Neurontin, and oral Dilaudid. History of ADHD continue Ritalin History of psoriasis no acute flare Class 2 obesity recommend low-calorie diet and weight loss Time Attestation Discharge Coordination Time (in mins): 35 Quality: Safe Use of Opioids Does Pt have an Active Cancer Diagnosis on the Problem List?: No Quality: Stroke Does the patient have a stroke diagnosis?: No Physical Exam Vital Signs: Vital Signs: Last Vital Signs Temp 97.2 F 11/22/23 07:43 Pulse 50 11/22/23 07:43 Resp 16 11/22/23 07:43 BP 124/62 11/22/23 07:43 Pulse Ox 99 11/22/23 07:43 O2 Del Method Room Air 11/22/23 07:43 BMI result Body Mass Index 36.4 General: AO X 3, no acute distress Resp: CTA bilateral CVS: S1,S2,RRR GI: +BS, NT, no distention Skin: No rash Neuro: motor grossly intact Psych: appropriate affect Discharge Plan Discharge Anticipated Discharge Date/Time: 11/22/23 12:04 Patient Disposition: Home, Self-Care Discharge Diagnosis: Back pain Referrals: Farrah Herring MD [Primary Care Provider] - 1 Week Sean Dumont MD, PhD [Physician] - 1 Week (Back pain) Discharge Medications: New famotidine 20 mg Tablet 20 mg PO BID Qty: 20 0RF gabapentin 100 mg Capsule 100 mg PO TID Qty: 30 0RF prednisone 10 mg tablets,dose pack 10 mg PO DIRECTED Qty: 21 0RF Rx Instructions: see taper instructions; 40 mg Daily x3 days, 30 mg daily x3 days, 20 mg daily x3 days, 10 mg daily x3 days hydromorphone [Dilaudid] 2 mg tablet 2 mg PO Q6H PRN (Reason: pain (scale score 7-10)) Qty: 12 0RF Rx Instructions: Partial Fill upon patient request. Continued methylphenidate HCl 10 mg tablet 10 mg PO TID naproxen 500 mg tablet 500 mg PO BID PRN (Reason: pain) norgestimate-ethinyl estradiol [Ijp-Nt-Ziilii] 0.18/0.215/0.25 mg-25 mcg tablet 1 tab PO DAILY Otezla 30 mg tablet 30 mg PO BID fluocinonide 0.05 % solution 1 appl topical BID Discharge Orders: Discharge Order (Routine); Ordered 11/22/23 Ordered By: Chencho Henao Diet: Advance to usual diet Activity on Discharge: No Running or jogging Stand Alone Forms: Patient Portal Discharge page, Work/School Release Print Language: Uzbek Care Plan Goals: recovery from back pain, and to resume full functioning and ADLS Health Concerns: Back pain Plan of Treatment: Take Prednisone as directed take dilaudid for painas directed follow up with your Doctor in a week Follow up with Neurosurgery--call for appointment Assessment: see above Discharge Date/Time: 11/23/23 10:34
--- NOTE | 2023-11-22 12:37 | MHC.CM.PN ---
Addendum entered by Gemini Whelan RN 11/22/23 16:08: CM met with patient several times throughout day to discuss dc plan. Patient's initial plan was to dc to her parent's house, w/ parents providing assistance PRN. Patient reports that parents do not feel patient is ready for dc and declined to provide transportation until they feel patient is ready for dc, also requesting new PT eval. PT worked w/ patient and are continuing to recommend home w/ outpatient PT. CM discussed alternate plan of returning home via BLS. Patient lives in one floor apartment, but feels she needs assistance. Patient aware she can privately pay for [employer], but that it takes time to set up. Declined information on local agencies. Patient requested to speak with family again. After further discussion w/ family, patient and family are agreeable to dc, but feel that it is too late in the day to transport. Parents live 1.5 hours away. Patient declines plan to return home via BLS. Patient/family requesting to stay until tomorrow morning. They are aware the insurance may not cover additional night, as there is no medical need. MD and RN aware. Plan for parents to slate picker patient 11/22 morning. CM will continue to follow. Original Note: Patient medically cleared for dc home self care. Parents to transport. Unsure of time. RN aware.
[2023-11-22 13:57] VITALS: BP 124/62; PULSE 50; O2SAT 99
[2023-11-22 15:03] VITALS: BP 132/68; PULSE 67; RESP 18; TEMP 36.6; O2SAT 97
--- NOTE | 2023-11-22 19:04 | PC.NURSE ---
Pt remains inpatient however has been deemed medically cleared and DC by MD, as well as confirmed with second assessment from Physical Therapy for safety per pt request, and support and resources offered from CM all have been declined. Pt reports parents are refusing to pick her up, states she is unwilling to leave via ambulance or other means of transportation. Has been made aware by team that she does not meet inpatient level of care/medical necessity and states she is willing to cover her stay until tomorrow morning. The plan is to have her parents pick her up at 1030am. Continues to improve per this nurse evaluations throughout shift with ambulation, pain frequency has remained constant but improved for sure per pt report.
[2023-11-22 23:56] VITALS: BP 132/66; PULSE 50; RESP 16; TEMP 36.4; O2SAT 99
[2023-11-23] MEDS: Ketorolac Tromethamine 30 MG/ML VIAL IVPUSH (05:06)
[2023-11-23 07:34] VITALS: BP 116/62; PULSE 44; RESP 16; TEMP 36.1; O2SAT 98
[2023-11-23] MEDS: Gabapentin 100 MG CAPSULE PO (08:41)
[2023-11-23] MEDS: Famotidine 20 MG TABLET PO (08:41)
[2023-11-23] MEDS: dexAMETHasone 4 MG TABLET PO (08:42)
[2023-11-23] MEDS: Methylphenidate HCl 10 MG TABLET PO (08:42)
== END 2023-11-23 10:34 | disposition home or self-care (01) | DRG 347 ==
LOC: HO.ED 16:28 → HO.EDOVER 17:06 → HO.S3 19:39
PROVIDERS: Admitting Provider Hospitalist; Emergency Provider Emergency Medicine; PCP Internal Medicine; Visit Provider Internal Medicine
DX: M51.17 Intervertebral disc disorders with radiculopathy, lumbosacral region (principal); E66.8 Other obesity; F90.9 Attention-deficit hyperactivity disorder, unspecified type; L40.9 Psoriasis, unspecified; Z71.3 Dietary counseling and surveillance; Z68.36 Body mass index [BMI] 36.0-36.9, adult; Z79.899 Other long term (current) drug therapy
CPT/HCPCS: 72148; 81001; 97162; 97530; 99285; J1100; J1170; J1885; J2270; J2919; J3360; J8540

== ENCOUNTER → 2023-11-19 17:00 | Outpatient (BNV) | payer OTHER, SELFPAY | PROVIDERS: Admitting Provider Hospitalist; Emergency Provider Emergency Medicine; PCP Internal Medicine; Visit Provider Hospitalist | DX: M54.17 Radiculopathy, lumbosacral region (principal); M54.9 Dorsalgia, unspecified | CPT/HCPCS: 99223; 99232; 99239 ==

== ENCOUNTER 2023-12-11 10:46 | Outpatient (AMB) | payer OTHER, SELFPAY ==
--- NOTE | 2023-12-11 10:48 | A.OFFVIS_ITS ---
Vital Signs 12/11/23 10:55 Height 5 ft 2 in Weight 201 lb 2 oz BMI 36.8 BP 135/70 Blood Pressure Location Lt brachial Position Sitting Pulse 93 Pulse Source Pulse Oximeter Pulse Oximetry (%) 100 Oxygen Delivery Method Room Air Intake Visit Reasons: Intervertebral Disc Displacement Intake Note: Pain today 5/10 Retail Marketing Coordinator Required: No Accompanied by: Self / Same As Patient Allergies acetaminophen [From Vicodin] Allergy (Severe, Verified 12/11/23 10:54) dyspnea codeine Allergy (Severe, Verified 12/11/23 10:54) Chest Pain hydrocodone [From Vicodin] Allergy (Severe, Verified 12/11/23 10:54) dyspnea HPI Comments Details: Conchis is a very pleasant 38-year-old female who presents the office today for evaluation management of her chronic lower back pain. Endorses left lower back pain with radiation down the leg to the foot. Pain initially started in 2017 after an injury at work. She did physical therapy and chiropractor which resolved the pain at that time. 08/29/2021 she had a recurrence of her pain that went down her left leg. Again conservative therapy resolved her pain. She has been doing home exercise program. Approximately 5 weeks ago was doing a quad stretch and felt increased pain. Attempted rest and NSAIDs without resolution. Awoke the following day with severe pain making it nearly impossible to walk. She was then admitted to the emergency room with admission to the hospital for 3 days. Underwent MRI, results as per below. She was prescribed gabapentin 10 day course, oral prednisone and hydromorphone on discharge from the hospital. Pain is improved about 50% from arrival to the ER when her pain was at its most severe. Did not find any relief with the gabapentin. Has referral to physical therapy but afraid to exacerbate her symptoms. Still with 5/10 pain despite previously described treatments. Has not been evaluated by neurosurgery. States did receive a message after hospitalization seeing imaging was reviewed by neurosurgery but did not warrant surgical evaluation. Her PCP referred her to Dr. Aguilera at [facility], currently awaiting appointment. In terms of muscle damage condition is described as pulsing, throbbing, pounding, stabbing, sharp, tingling, burning, cool, spreading, radiating, dull, sore, aching Pain is negatively impacting patient's sleep, ability to perform activities of daily living, normal functioning, walking, physical activity. Denies current red flag symptoms including new loss of bowel bladder or saddle anesthesia. Endorses saddle anesthesia when she was admitted to the emergency room but that has since resolved. Denies current use of anticoagulants Denies implantable devices, pacemaker defibrillator Denies current use of nicotine, tobacco, recreational drugs. Endorses social alcohol use. [facility] Medical History (Updated 12/11/23 @ 11:04 by Elba Pritchett) ADHD Psoriasis Ovarian cyst PID (acute pelvic inflammatory disease) Vulvar abscess Right sided abdominal pain Cervical dysplasia Vitamin D deficiency Breast lump Arthralgia of multiple joints Anxiety Lumbar back pain with radiculopathy affecting left lower extremity Social History Household Members: None Housing: Apartment Do you presently have visiting nurse or other home services: No Alcohol intake: current Alcohol intake frequency: a few times a week Comment: pt rings appropriately Patient Tobacco Use Status: Never used Tobacco Substance Use Type: Marijuana service: No Review of Systems Const All systems reviewed & are unremarkable except as noted in HPI and below Physical Exam Vital Signs: Last Vital Signs Pulse 93 12/11/23 10:55 BP 135/70 12/11/23 10:55 Pulse Ox 100 12/11/23 10:55 Oxygen Delivery Method Room Air 12/11/23 10:55 BMI result Body Mass Index 36.8 General: awake, alert, oriented. Answers questions appropriately. Fully engaged in examination. Skin: warm, dry, intact HEENT: Normocephalic. Hearing intact. Cardiac: External chest normal in appearance. Respiratory: No cough, audible wheezing or stridor. Abdomen: without gross distension. MS: No obvious swelling or deformities. Able to stand on bilateral tiptoes and bilateral heels.? Able to transition from sit to stand unassisted. Ambulates with bilaterally normal heel strike and toe off SLR positive on the left Tender to palpation midline lumbar vertebrae Facet loading negative Bilateral lower extremity strength 5/5 Negative footdrop, negative clonus Preserved range of motion, discomfort with forward flexion at 80 degrees, extension to 10 degrees Nontender over bilateral PSIS Neurological: Oriented to person, place, time and situation. Thought process intact. No gait abnormalities appreciated. Psychiatric: Appropriate mood and affect. Good judgment and insight. Results Reviewed Results Reviewed: 11/19/2023 MRI lumbar spine without contrast: FINDINGS: Alignment is normal. Vertebral body heights are preserved. No acute bone marrow signal changes. There is loss of intervertebral disc height and T2 signal intensity at L5-S1. The tip of the conus medullaris is located at L1. No mass effect on the conus. Visualized distal cord signal intensity is normal. At L1-L2, L2-L3, L3-L4, and L4-L5 the annular contours are normal. No canal or neuroforaminal compromise at these 4 levels. At L5-S1 there is a broad left central protrusion superimposed upon a bulging disc causing indentation of the thecal sac and subtle abutment on the left traversing S1 nerve root. No canal stenosis and no foraminal nerve root compression. Limited visualization of the retroperitoneal anatomy reveals no abnormal finding. Psoas and paraspinal muscle groups are symmetric. IMPRESSION: There is a broad left central protrusion superimposed upon a bulging disc at L5-S1 causing subtle abutment on the left traversing S1 nerve root. Otherwise unremarkable examination. No canal stenosis and no foraminal nerve root compression. Assessment & Plan Assessment & Plan (1) Lumbosacral radiculopathy at S1: Code(s): M54.17 - Radiculopathy, lumbosacral region Category: Medical (2) Bulging lumbar disc: Code(s): M51.36 - Other intervertebral disc degeneration, lumbar region Category: Medical Plan Conchis is a very pleasant 38-year-old female who presented to the office today for evaluation management of her chronic lower back pain History, physical exam and provocative testing consistent with left lumbar radiculopathy Patient has exhausted conservative therapy including home exercise program, nonsteroidal anti-inflammatory medication, prescription medications, oral right therapy and manual manipulation by chiropractor all without improvement of her symptoms. Unable to attempt PT at this time due to risk of worsening pain/injury. 50% improved from recent hospitalization for intractable back pain. Concern for exacerbation with physical therapy. MRI was reviewed, as per above. Discussed at length patient's diagnosis and treatment options including diagnostic interventional testing, epidural steroid injections, peripheral nerve stimulation with Sprint, RFA and more permanent neuromodulation. Will schedule for fluoroscopy guided left L5 S1 transforaminal epidural steroid injection with local anesthetic. Informational pamphlets provided. All questions and concerns have been answered and patient agrees with the plan. Follow up after injections and sooner if needed. Coding Level of Care Code New Pt Level 4 (94801) Diagnoses Lumbosacral radiculopathy at S1 M54.17 Bulging lumbar disc M51.36
[2023-12-11 10:55] VITALS: BP 135/70; PULSE 93; O2SAT 100; BMI 36.8
== END 2023-12-11 11:21 | disposition home or self-care (01) ==
PROVIDERS: PCP Internal Medicine; Visit Provider Registered Nurse Emergency
DX: M54.17 Radiculopathy, lumbosacral region (principal); M51.36 Other intervertebral disc degeneration, lumbar region
CPT/HCPCS: 99204

== ENCOUNTER → 2023-12-11 10:46 | Outpatient (BNVA) | payer OTHER, SELFPAY | PROVIDERS: PCP Internal Medicine; Visit Provider Registered Nurse Emergency ==

== ENCOUNTER 2024-02-10 06:11 | Outpatient (REF) | payer OTHER, SELFPAY | END 2024-02-10 06:12 | disposition home or self-care (01) | LOC: CF 06:11 | PROVIDERS: Visit Provider Anesthesiology | DX: M54.17 Radiculopathy, lumbosacral region (principal); M51.360 Other intervertebral disc degeneration, lumbar region with discogenic back pain only | CPT/HCPCS: 64483; J1100; J3301 ==

== ENCOUNTER 2024-02-10 07:52 | Outpatient (AMB) | payer OTHER, SELFPAY ==
[2024-02-10 08:00] VITALS: BP 128/59; PULSE 92; RESP 14; O2SAT 97; BMI 36.8
--- NOTE | 2024-02-10 08:00 | MHC.OFFVIS ---
Vital Signs 02/10/24 08:00 02/10/24 09:34 Height 5 ft 2 in 5 ft 2 in Weight 201 lb 2 oz 201 lb 2 oz BMI 36.8 36.8 BP 128/59 L 124/67 Blood Pressure Location Rt brachial Lt brachial Position Sitting Sitting Respiration 14 14 Pulse 92 60 Pulse Source Pulse Oximeter Pulse Oximeter Pulse Oximetry (%) 97 98 Oxygen Delivery Method Room Air Room Air Comment pre-op post-op Intake Visit Reasons: LEFT L5, S1 TFESI Allergies acetaminophen [From Vicodin] Allergy (Severe, Verified 02/10/24 09:35) dyspnea codeine Allergy (Severe, Verified 02/10/24 09:35) Chest Pain hydrocodone [From Vicodin] Allergy (Severe, Verified 02/10/24 09:35) dyspnea PFSH Medical History (Updated 12/11/23 @ 11:04 by Elba Pritchett) ADHD Psoriasis Ovarian cyst PID (acute pelvic inflammatory disease) Vulvar abscess Right sided abdominal pain Cervical dysplasia Vitamin D deficiency Breast lump Arthralgia of multiple joints Anxiety Lumbar back pain with radiculopathy affecting left lower extremity Social History Household Members: None Housing: Apartment Do you presently have visiting nurse or other home services: No Alcohol intake: current Alcohol intake frequency: a few times a week Comment: pt rings appropriately Patient Tobacco Use Status: Never used Tobacco Substance Use Type: Marijuana service: No Physical Exam Vital Signs: Last Vital Signs Pulse 60 02/10/24 09:34 Resp 14 02/10/24 09:34 BP 124/67 02/10/24 09:34 Pulse Ox 98 02/10/24 09:34 Oxygen Delivery Method Room Air 02/10/24 09:34 BMI result Body Mass Index 36.8 Assessment & Plan Assessment & Plan (1) Lumbosacral radiculopathy at S1: Code(s): M54.17 - Radiculopathy, lumbosacral region Category: Medical Plan: Transforaminal left L5-S1 epidural steroid injection Informed consent was thoroughly explained to the patient before the procedure.? The patient came to the operating room.?SHE was positioned prone on operating table with a pillow under her abdomen.? Time-out was performed delineating correct site and side of the procedure, nature of the injection, name and date of of the patient. The lower back of the patient was prepped with ChloraPrep and draped with sterile utility towels.? C-arm was brought over the operating field and sq picture of L5 vertebra were demonstrated on the screen.? The left side was chosen as the side of the injection.? Tilting machine ipsilateral to the right at the level of L5 1st the most prominent picture of the left L5 pedicle was obtained on the screen.? 3 mm below the level of the lowest point of the pedicle projection to the skin small amount of lidocaine 1% 3-4 cc was injected to anesthetize the skin.? After that 5 in 22 gauge Quincke point needle was inserted through the skin wheal and was advanced to were the L5-S1 foramina on anterior posterior , lateral and oblique views intermittently.? When tip of the needle entered foramina projection on AP view injection of the contrast was performed demonstrating epidural and perineural spread of the contrast. After that injection of the treatment medicine 4 cc of lidocaine 1% mixed with Kenalog 40 mg was injected into the foramina.? No intrathecal and no intravascular spread of the contrast was noted. Upon completion of the procedure sterile Band-Aids were applied. Patient tolerated procedure well she was taken outside of the operating room where he recovered uneventfully.? He went home without immediate complications. (2) Bulging lumbar disc: Code(s): M51.36 - Other intervertebral disc degeneration, lumbar region Category: Medical Plan see above Orders: Orders FL guidance in treatment room Today M54.17 - Radiculopathy, lumbosacral region Coding Level of Care Code Procedure Only Diagnoses Lumbosacral radiculopathy at S1 M54.17 Bulging lumbar disc M51.36
[2024-02-10 09:34] VITALS: BP 124/67; PULSE 60; RESP 14; O2SAT 98; BMI 36.8
== END 2024-02-10 09:28 | disposition home or self-care (01) ==
LOC: HO.PMCPRC 07:52
PROVIDERS: PCP Internal Medicine; Visit Provider Anesthesiology
DX: M54.17 Radiculopathy, lumbosacral region (principal); M51.362 Other intervertebral disc degeneration, lumbar region with discogenic back pain and lower extremity pain
CPT/HCPCS: 64483

== ENCOUNTER 2024-03-05 08:54 | Outpatient (AMB) | payer OTHER, SELFPAY ==
[2024-03-05 08:59] VITALS: BP 137/65; PULSE 91; O2SAT 100; BMI 36.9
--- NOTE | 2024-03-05 08:59 | MHC.OFFVIS ---
Vital Signs 03/05/24 08:59 Height 5 ft 2 in Weight 202 lb BMI 36.9 BP 137/65 Blood Pressure Location Lt brachial Position Sitting Pulse 91 Pulse Source Pulse Oximeter Pulse Oximetry (%) 100 Oxygen Delivery Method Room Air Intake Visit Reasons: LEFT L5, S1 TFESI/02/10/24 Allergies acetaminophen [From Vicodin] Allergy (Severe, Verified 03/05/24 09:00) dyspnea codeine Allergy (Severe, Verified 03/05/24 09:00) Chest Pain hydrocodone [From Vicodin] Allergy (Severe, Verified 03/05/24 09:00) dyspnea Medication List - Last Reconciled 03/05/24 by Rosa Lui apremilast (Otezla) 30 mg PO BID famotidine 20 mg PO BID fluocinonide 0.05% 1 appl topical BID gabapentin 100 mg PO TID hydromorphone (Dilaudid) 2 mg PO Q6H PRN methylphenidate HCl 10 mg PO TID naproxen 500 mg PO BID PRN norgestimate-ethinyl estradiol 0.18/0.215/0.25 mg-25 mcg (Awo-Xr-Ucdlum) 1 tab PO DAILY prednisone 10 mg PO DIRECTED HPI Comments Details: Conchis presents back to the office today for follow up, 1 month s/p left L5 S1 transforaminal epidural steroid injection She reports 60% pain relief since the injection. Remains with occassional sharp axial pain with certain movements and some bilateral pain over PSIS with radiation down posterior thighs and to thee groin. This pain is worse with sitting and standing. Rated today as 2/10. Has been taking Naproxen with some relief. Previously she was referred to neurosurgery, Dr. Aguilera at [facility] but she does not have an appt yet. Prior: Conchis is a very pleasant 38-year-old female who presents the office today for evaluation management of her chronic lower back pain. Endorses left lower back pain with radiation down the leg to the foot. Pain initially started in 2018 after an injury at work. She did physical therapy and chiropractor which resolved the pain at that time. 08/29/2021 she had a recurrence of her pain that went down her left leg. Again conservative therapy resolved her pain. She has been doing home exercise program. Approximately 5 weeks ago was doing a quad stretch and felt increased pain. Attempted rest and NSAIDs without resolution. Awoke the following day with severe pain making it nearly impossible to walk. She was then admitted to the emergency room with admission to the hospital for 3 days. Underwent MRI, results as per below. She was prescribed gabapentin 10 day course, oral prednisone and hydromorphone on discharge from the hospital. Pain is improved about 50% from arrival to the ER when her pain was at its most severe. Did not find any relief with the gabapentin. Has referral to physical therapy but afraid to exacerbate her symptoms. Still with 5/10 pain despite previously described treatments. Has not been evaluated by neurosurgery. States did receive a message after hospitalization seeing imaging was reviewed by neurosurgery but did not warrant surgical evaluation. Her PCP referred her to Dr. Aguilera at [facility], currently awaiting appointment. In terms of muscle damage condition is described as pulsing, throbbing, pounding, stabbing, sharp, tingling, burning, cool, spreading, radiating, dull, sore, aching Pain is negatively impacting patient's sleep, ability to perform activities of daily living, normal functioning, walking, physical activity. Denies current red flag symptoms including new loss of bowel bladder or saddle anesthesia. Endorses saddle anesthesia when she was admitted to the emergency room but that has since resolved. Denies current use of anticoagulants Denies implantable devices, pacemaker defibrillator Denies current use of nicotine, tobacco, recreational drugs. Endorses social alcohol use. [facility] Medical History (Updated 03/05/24 @ 09:45 by Bridget Box APRN, [employer] [facility]) ADHD Psoriasis Ovarian cyst PID (acute pelvic inflammatory disease) Vulvar abscess Right sided abdominal pain Cervical dysplasia Vitamin D deficiency Breast lump Arthralgia of multiple joints Anxiety Lumbar back pain with radiculopathy affecting left lower extremity Social History Household Members: None Housing: Apartment Do you presently have visiting nurse or other home services: No Alcohol intake: current Alcohol intake frequency: a few times a week Comment: pt rings appropriately Patient Tobacco Use Status: Never used Tobacco Substance Use Type: Marijuana service: No Review of Systems Const All systems reviewed & are unremarkable except as noted in HPI and below Physical Exam Vital Signs: Last Vital Signs Pulse 91 03/05/24 08:59 BP 137/65 03/05/24 08:59 Pulse Ox 100 10/25/24 08:59 Oxygen Delivery Method Room Air 03/05/24 08:59 BMI result Body Mass Index 36.9 General: awake, alert, oriented. Answers questions appropriately. Fully engaged in examination. Skin: warm, dry, intact HEENT: Normocephalic. Hearing intact. Cardiac: External chest normal in appearance. Respiratory: No cough, audible wheezing or stridor. Abdomen: without gross distension. MS: No obvious swelling or deformities. Able to stand on bilateral tiptoes and bilateral heels.? Able to transition from sit to stand unassisted. Ambulates with bilaterally normal heel strike and toe off Tender to palpation midline lumbar vertebrae Facet loading negative Bilateral lower extremity strength 5/5 Negative footdrop, negative clonus Tenderness over bilateral PSIS [place] positive, thigh thrust positive, SI compression positive Neurological: Oriented to person, place, time and situation. Thought process intact. No gait abnormalities appreciated. Psychiatric: Appropriate mood and affect. Good judgment and insight. Results Reviewed Results Reviewed: 11/19/2023 MRI lumbar spine without contrast: FINDINGS: Alignment is normal. Vertebral body heights are preserved. No acute bone marrow signal changes. There is loss of intervertebral disc height and T2 signal intensity at L5-S1. The tip of the conus medullaris is located at L1. No mass effect on the conus. Visualized distal cord signal intensity is normal. At L1-L2, L2-L3, L3-L4, and L4-L5 the annular contours are normal. No canal or neuroforaminal compromise at these 4 levels. At L5-S1 there is a broad left central protrusion superimposed upon a bulging disc causing indentation of the thecal sac and subtle abutment on the left traversing S1 nerve root. No canal stenosis and no foraminal nerve root compression. Limited visualization of the retroperitoneal anatomy reveals no abnormal finding. Psoas and paraspinal muscle groups are symmetric. IMPRESSION: There is a broad left central protrusion superimposed upon a bulging disc at L5-S1 causing subtle abutment on the left traversing S1 nerve root. Otherwise unremarkable examination. No canal stenosis and no foraminal nerve root compression. Assessment & Plan Assessment & Plan (1) Lumbosacral radiculopathy at S1: Code(s): M54.17 - Radiculopathy, lumbosacral region Category: Medical (2) Intractable back pain: Code(s): M54.9 - Dorsalgia, unspecified Category: Medical (3) Sacroiliac joint dysfunction of both sides: Code(s): M53.3 - Sacrococcygeal disorders, not elsewhere classified Category: Medical (4) Bulging lumbar disc: Code(s): M51.36 - Other intervertebral disc degeneration, lumbar region Category: Medical Plan Conchis presents the office today for follow-up 1 month status post left L5-S1 transforaminal epidural steroid injection. She reports 60% pain relief with improvement in function and mobility since the injection. Now with symptoms consistent bilateral SIJ dysfunction Patient has exhausted conservative therapy including home exercise program, nonsteroidal anti-inflammatory medication, prescription medications, oral right therapy and manual manipulation by chiropractor all without improvement of her symptoms. Initially she was unable to complete physical therapy due to pain, today order has been placed for physical therapy. Celebrex 50 mg p.o. twice daily. Patient advised on cautions views. Take with food, do not take with any other nonsteroidal anti-inflammatory medications. Discontinue use of naproxen before starting this medication. Follow up with Neurosurgery as planned, patient to call and make an appointment All questions and concerns have been answered and patient agrees with the plan. Follow up after physical therapy, sooner if needed. Orders: Orders PT Evaluation and Treatment Today M53.3 - Sacrococcygeal disorders, not elsewhere classified, M54.17 - Radiculopathy, lumbosacral region, M54.9 - Dorsalgia, unspecified Medications: New celecoxib 50 mg PO BID 60 caps 3RF Coding Level of Care Code Est Pt Level 3 (11626) Complex EM visit Add On G2211 Diagnoses Lumbosacral radiculopathy at S1 M54.17 Intractable back pain M54.9 Sacroiliac joint dysfunction of both sides M53.3 Bulging lumbar disc M51.36
== END 2024-03-05 09:39 | disposition home or self-care (01) ==
PROVIDERS: PCP Internal Medicine; Visit Provider Registered Nurse Emergency
DX: M54.17 Radiculopathy, lumbosacral region (principal); M54.9 Dorsalgia, unspecified; M53.3 Sacrococcygeal disorders, not elsewhere classified; M51.369 Other intervertebral disc degeneration, lumbar region without mention of lumbar back pain or lower extremity pain
CPT/HCPCS: 99213

== ENCOUNTER → 2024-03-05 08:54 | Outpatient (BNVA) | payer OTHER, SELFPAY | PROVIDERS: PCP Internal Medicine; Visit Provider Registered Nurse Emergency ==